=== PATIENT | female | born 1950 | race Caucasian/White ===

== ENCOUNTER 2018-04-16 19:24 | Emergency (ER) | payer MEDICARE, SELFPAY ==
[2018-04-16 19:25] VITALS: BP 177/87; PULSE 82; RESP 18; TEMP 35.9; O2SAT 97; BMI 25.8
--- NOTE | 2018-04-16 19:33 | RAD_ITS ---
STUDY: X-RAY - RIGHT FOOT CLINICAL: Female, 67 years old. Right foot pain and swelling after trauma TECHNIQUE: 3 view(s) of the foot. COMPARISON: None. FINDINGS: Nondisplaced transverse pressure type fracture of the distal great toe of the right foot with subjacent soft tissue swelling. No other osseous injury is noted. RAD/Foot min 3 Views IMPRESSION: As above Electronically Signed: Mark Spann DO at 20:03 EDT Tel , Service support ,
--- NOTE | 2018-04-16 19:33 | ED.VISSUMM ---
- ER Visit Summary Date of Service: 04/16/18 Chief Complaint: Right foot injury History of Present Illness: The patient is a 67 F presents to the emergency department with blunt injury to right foot. Patient was helping her load 2 by fours in the back of the truck. Part of the bundle fell and landed on the dorsum of her foot. Most of the pain is at her right great toe. Tetanus is up-to-date. She takes a daily cholesterol medication but is otherwise healthy. She has been able to bear weight. She denies other injury. Physical Examination: Exam is relatively unremarkable. There is ecchymosis on the dorsum of the foot over the great toe. Pulses are normal. She has a superficial abrasion in the mid joyner. There is no active bleeding. Sensation is preserved to light touch. Test Results: [] Emergency Department Course and Treatment: Nail hungarian was removed from the great toe. There is no subungual hematoma. X-rays do demonstrate comminuted fracture of the distal phalanges of the great toe. Patient will be placed in a postoperative shoe. She will be given analgesics and outpatient podiatry follow-up for reevaluation. She is comfortable this plan of care. Treatment Plan: [] Disposition: Discharge Impression: 1. Closed fracture first distal phalanges of the right great toe This note was generated with [employer] dictation software. It may contain incorrect words, spelling, and punctuation that were not noted in review of the chart prior to signing ED Disposition - Plan for ED Patient: Chief Complaint: Lower Extremity Injury Instructions: ED Fx Toe Closed Prescriptions: Hydrocodone Bitart/Apap 5-325 [[place] 5MG-325MG] 1 tab PO Q6H PRN PRN 3 Days #10 tab PRN Reason: Pain Referrals: Luis Angel Garsia DPM [STAFF PHYSICIAN] -
[2018-04-16] MEDS: HYDROcodone Bitartrate/Apap 5/325 Tablet PO (19:48)
[2018-04-16 19:56] VITALS: RESP 16
== END 2018-04-16 20:07 | disposition home or self-care (01) ==
LOC: ED 19:46
PROVIDERS: Emergency Provider Emergency Medicine
DX: S92.424A Nondisplaced fracture of distal phalanx of right great toe, initial encounter for closed fracture (principal); W22.8XXA Striking against or struck by other objects, initial encounter; Y93.89 Activity, other specified; Y92.9 Unspecified place or not applicable
CPT/HCPCS: 73630; 99283

== ENCOUNTER → 2018-04-19 18:19 | Outpatient (CLI) | payer MEDICARE, SELFPAY ==
[2018-04-19 19:55] LABS: M R Staph aureus DNA By PCR Negative (Negative); Probe Check PASS; Specimen Processing Control PASS; Staph aureus DNA By PCR NEGATIVE (Negative)
== END ==
PROVIDERS: Visit Provider Podiatrist
DX: L97.919 Non-pressure chronic ulcer of unspecified part of right lower leg with unspecified severity (principal)
CPT/HCPCS: 87070; 87075; 87077; 87186; 87205; 87640

== ENCOUNTER → 2019-02-26 08:09 | Outpatient (CLI) | payer MEDICARE, SELFPAY ==
--- NOTE | 2019-02-26 08:11 | BI_ITS ---
MAMMOGRAPHY - BILATERAL SCREENING REASON FOR EXAM: Female, 68 years old. Routine annual screening examination. PERTINENT HISTORY: Non-contributory. TECHNIQUE: Digital bilateral breast sahra (3D mammographic acquisition) in the CC and MLO projections. 2-D mediolateral oblique (MLO) and craniocaudad (CC) views of both breasts were obtained. CAD: Full Field Digital Mammography with Computer Added Detection was performed. COMPARISON: Comparison is made with prior operative examination dated May 03, 2014. FINDINGS: Breast Composition: The breasts are heterogeneously dense, which may obscure small masses. There are no dominant masses or suspicious calcifications. No other significant abnormalities are identified. There has been no significant change since the prior study. BI/SCREENING MAMM (CAD), BILAT IMPRESSION: Stable bilateral screening mammogram. Yearly follow-up mammogram recommended. (A) ASSESSMENT CATEGORY: BIRADS Category 1: Negative. A letter regarding these results will be sent to the patient by the facility within 30 days. Approximately 10% of breast cancers are not detected by mammography. A normal mammogram should not delay biopsy of a clinically suspicious abnormality. [id number] Electronically Signed: Bob Gomez, at 8:03 EDT , Service support ,
== END ==
PROVIDERS: PCP Registered Nurse; Visit Provider Registered Nurse
DX: Z12.31 Encounter for screening mammogram for malignant neoplasm of breast (principal)
CPT/HCPCS: 77063; 77067

== ENCOUNTER → 2019-07-24 10:35 | Outpatient (CLI) | payer MEDICARE, SELFPAY ==
--- NOTE | 2019-07-24 10:34 | BD_ITS ---
STUDY: DUAL ENERGY X-RAY ABSORPTIOMETRY / DXA REASON FOR EXAM: Female, 69 years old. The patient is postmenopausal. Loss of height. TECHNIQUE: Bone Mineral Density (BMD) measurements of lumbar spine and bilateral hips were obtained. COMPARISON: None. FINDINGS: Lumbar Spine (L1-L4): g/cm2 (0.948) / T-score (-1.9) / Z-score (-0.2) Findings are suggestive of osteopenia with a moderate fracture risk. Left Femur Total: g/cm2 (0.910) / T-score (-0.8) / Z-score (0.7) Left Femoral Neck: g/cm2 (0.913) / T-score (-0.9) / Z-score (0.8) Right Femur Total: g/cm2 (0.877) / T-score (-1.0) / Z-score (0.4) Right Femoral Neck: g/cm2 (0.876) / T-score (-1.2) / Z-score (0.5) BD/Dexa Bone Density Study IMPRESSION: The patient is considered osteopenic as outlined below according to World [employer] Organization (WHO) criteria with a moderate fracture risk. Reference Information: The T-score is the number of standard deviations above or below the standard which is normal for young adults at their peak bone mineral density. The World Health Organization (WHO) interprets the T-scores as follows: Above -1 Normal bone density Between -1 and -2.5 Osteopenia Equal to / or below -2.5 Osteoporosis As a practical clinical guideline, osteopenia may be graded as follows: Mild -1 through -1.5 Moderate -1.6 through -2.0 Severe -2.1 through -2.4 The Z-score is the number of standard deviations above or below age-matched controls. A Z-score of less than -1.5 would be considered abnormal. References: 1. NIH Osteoporosis and Related Bone Diseases http://www.osteo.org 2. International Society for Clinical Densitometry http://www.iscd.org 3. National Osteoporosis Foundation http://www.nof.org Electronically Signed: Bob Gomez, at 13:40 EDT , Service support ,
== END ==
PROVIDERS: Family Provider Registered Nurse; PCP Registered Nurse; Referring Provider Registered Nurse; Visit Provider Registered Nurse
DX: Z13.820 Encounter for screening for osteoporosis (principal); Z78.0 Asymptomatic menopausal state
CPT/HCPCS: 77080

== ENCOUNTER 2021-01-01 14:45 | Outpatient (RCR) | payer MEDICARE, SELFPAY ==
[2021-01-01] MEDS: COVID-19 VACC, MRNA(PFIZER)/PF 30 MCG/0.3 ML SYRINGE IM (08:59)
[2021-01-22] MEDS: COVID-19 VACC, MRNA(PFIZER)/PF 30 MCG/0.3 ML SYRINGE IM (08:44)
== END 2021-03-31 23:59 ==
LOC: IMMUN 14:45
PROVIDERS: PCP Registered Nurse; Visit Provider Family Medicine
DX: Z23 Encounter for immunization (principal)
CPT/HCPCS: 0001A; 0002A; 91300